=== PATIENT | female | born 1960 | race Caucasian/White ===

== ENCOUNTER 2016-07-10 15:45 | Emergency (ER) | payer BC ==
[2016-07-10 16:02] VITALS: BP 144/94
--- NOTE | 2016-07-10 16:28 | UC ---
Throat Pain/Nasal Abdirahman HPI - HPI Summary HPI Summary: 5-6 days ago developed nasal congestion, ST, facial pressure, cough. Denies fever, having some tightness in the chest. - History of Current Complaint Chief Complaint: UCGeneralIllness Stated Complaint: SINUS,COUGH Time Seen by Provider: 07/10/16 16:04 Hx Obtained From: Patient ?: No Onset/Duration: Gradual Onset, Lasting Days Severity: Moderate Cough: Productive Associated Signs & Symptoms: Positive: Nasal Discharge. Negative: Fever - Allergies/Home Medications Allergies/Adverse Reactions: Allergies Allergy/AdvReac Type Severity Reaction Status Date / Time No Known Allergies Allergy Verified 07/10/16 16:02 PMH/Surg Hx/FS Hx/Imm Hx Previously Healthy: Yes Cancer History Of: Denies: Breast Cancer - Surgical History Surgical History: Yes Surgery Procedure, Year, and Place: hysterectomy-Partial 2001 - Family History Known Family History: Negative: Cardiac Disease, Hypertension - Social History Occupation: Employed Full-time Alcohol Use: Weekly Substance Use Type: None Smoking Status (MU): Never Smoked Tobacco Review of Systems Constitutional: Negative Skin: Negative Eyes: Negative ENT: Sore Throat, Nasal Discharge Respiratory: Shortness Of Breath, Cough Cardiovascular: Negative Gastrointestinal: Negative Genitourinary: Negative Motor: Negative Neurovascular: Negative Musculoskeletal: Negative Neurological: Negative Psychological: Negative All Other Systems Reviewed And Are Negative: Yes Physical Exam Triage Information Reviewed: Yes Appearance: Well-Appearing, No Pain Distress, Well-Nourished Vital Signs: Initial Vital Signs Temp 99.0 F 07/10/16 15:59 Pulse 66 07/10/16 15:59 Resp 16 07/10/16 15:59 BP 144/94 07/10/16 15:59 Pulse Ox 100 07/10/16 15:59 Vital Signs Reviewed: Yes Eye Exam: Normal Eyes: Positive: Conjunctiva Clear ENT: Positive: Hearing grossly normal, Pharynx normal, Nasal congestion, Nasal drainage, TMs normal Dental Exam: Normal Neck exam: Normal Neck: Positive: Supple, Nontender, No Lymphadenopathy Respiratory: Positive: No respiratory distress, No accessory muscle use, Rhonchi - clear with cough, Other: - cough Cardiovascular Exam: Normal Cardiovascular: Positive: RRR, No Murmur Musculoskeletal Exam: Normal Neurological Exam: Normal Psychological Exam: Normal Skin Exam: Normal Throat Pain/Nasal Course/Dx - Differential Dx/Diagnosis Provider Diagnoses: URI, likely viral Discharge - Discharge Plan Condition: Stable Disposition: HOME Prescriptions: Albuterol HFA INHALER* [Ventolin HFA Inhaler*] 1 - 2 puff INH Q4H PRN #1 mdi PRN Reason: wheeze, cough Benzonatate CAP* [Tessalon CAP*] 100 mg PO TID PRN #30 cap PRN Reason: Cough Patient Education Materials: Upper Respiratory Infection (ED) Referrals: Lizbeth Garcia MD [Primary Care Provider] - If Needed Additional Instructions: Call or return if you develop increasing fever, shortness of breath, chest pain , bloody sputum, or otherwise worsen. If you have not improved at all after several days, contact your primary care physician or return here.
== END 2016-07-10 16:37 | disposition home or self-care (01) ==
LOC: UCCORT 15:45
DX: J06.9 Acute upper respiratory infection, unspecified (principal)
CPT/HCPCS: 99212; G0463

== ENCOUNTER 2017-02-13 09:53 | Emergency (ER) | payer BC ==
--- NOTE | 2017-02-13 10:50 | UC ---
Skin Complaint HPI - HPI Summary HPI Summary: 56 yo female with left thoraic back pain x 2 days radiates to front rash started last night - History of Current Complaint Chief Complaint: UCRash Time Seen by Provider: 02/13/17 10:43 Stated Complaint: RASH Hx Obtained From: Patient Onset/Duration: Gradual Onset, Lasting Hours Timing: Constant Onset Severity: Mild Current Severity: Moderate Pain Intensity: 4 - worse without motrin Pain Scale Used: 0-10 Numeric Location: Discrete Character: Pain, Redness, Raised, Painful Aggravating: Touch Alleviating: OTC Meds Associated Signs & Symptoms: Positive: Rash - Allergy/Home Medications Allergies/Adverse Reactions: Allergies Allergy/AdvReac Type Severity Reaction Status Date / Time No Known Allergies Allergy Verified 02/13/17 10:21 Home Medications: Home Medications Ibuprofen [Advil] 400 mg PO ONCE PRN 02/13/17 [History Confirmed 02/13/17] Review of Systems Constitutional: Negative Skin: Rash Eyes: Negative ENT: Negative Respiratory: Negative Cardiovascular: Negative Gastrointestinal: Negative Genitourinary: Negative Motor: Negative Neurovascular: Negative Musculoskeletal: Negative Neurological: Negative Psychological: Negative All Other Systems Reviewed And Are Negative: Yes PMH/Surg Hx/FS Hx/Imm Hx Previously Healthy: Yes - Surgical History Surgical History: Yes Surgery Procedure, Year, and Place: hysterectomy-Partial 2001 - Family History Known Family History: Negative: Cardiac Disease, Hypertension, Diabetes - Social History Alcohol Use: Weekly Substance Use Type: None Smoking Status (MU): Never Smoked Tobacco Physical Exam Triage Information Reviewed: Yes Appearance: Well-Appearing, No Pain Distress, Well-Nourished Vital Signs: Initial Vital Signs Temp 99.2 F 02/13/17 10:23 Pulse 78 02/13/17 10:23 Resp 16 02/13/17 10:23 BP 163/114 02/13/17 10:23 Pulse Ox 98 02/13/17 10:23 Vital Signs Reviewed: Yes Eyes: Positive: Conjunctiva Clear ENT: Positive: Hearing grossly normal. Negative: Nasal congestion, Nasal drainage, Tonsillar exudate, Trismus, Muffled/hoarse voice Neck: Positive: Supple, Nontender Respiratory: Positive: Lungs clear, Normal breath sounds, No respiratory distress Cardiovascular: Positive: RRR, No Murmur Neurological: Positive: Alert Psychological Exam: Normal Skin: Positive: Other - vesicular rash, see image Course/Dx - Diagnoses Provider Diagnoses: shingles Discharge - Discharge Plan Condition: Stable Disposition: HOME Prescriptions: Famciclovir(NF) [Famvir(NF)] 500 mg PO TID #21 tab Patient Education Materials: Betty (ED) Referrals: Lizbeth Garcia MD [Primary Care Provider] - 2 Weeks (I suggest BP recheck in a few weeks) Images Front/Back of Body, Lg ([place]): 1 - vesicular rash
[2017-02-13 11:02] VITALS: BP 166/101
== END 2017-02-13 11:00 | disposition home or self-care (01) ==
LOC: UCCORT 09:53
DX: R23.8 Other skin changes (principal)
CPT/HCPCS: 99212; G0463